=== PATIENT | female | born 1975 | race Caucasian/White ===

== ENCOUNTER 2024-11-12 09:19 | Outpatient (CLI) | payer MEDICAID | END 2024-11-12 09:20 | disposition home or self-care (01) | LOC: CSHLAB 09:19 | PROVIDERS: ATTEND Obstetrics & Gynecology | DX: Z01.818 Encounter for other preprocedural examination (principal); D25.1 Intramural leiomyoma of uterus | CPT/HCPCS: 80048; 84703; 85027; 86850; 86900; 86901; 93005; 93010 ==

== ENCOUNTER 2024-11-16 07:34 | Day surgery (SDC) | payer MEDICAID ==
[2024-11-12 10:19] VITALS: BMI 34.0
[2024-11-12 10:28] LABS: Hematocrit 40.3 % (34.9-44.5); Hemoglobin 12.8 g/dL (12.0-15.5); Mean Corpuscular Hemoglobin 27.6 pg (27.0-33.0); Mean Corpuscular Volume 87.0 fL (81.6-98.3); Platelet Count 617 10x3/uL (150-450); Red Blood Cell (RBC) Count 4.63 10x6/uL (3.90-5.03); White Blood Cell (WBC) Count 10.63 10x3/uL (3.5-10.5)
[2024-11-12 10:40] LABS: BHCG - Serum Negative (NEGATIVE); Pregs Control Background? CLEAR/WHITE (CLR/WHITE); Pregs Control Bar Appear? YES (CONTROL BAR)
[2024-11-12 10:43] LABS: Anion Gap 14 mmol/L (10-20); BUN (Urea Nitrogen) 15 mg/dL (7.0-18.7); Calc. Creatinine Clearance 0 mL/min (70-130); Calcium 9.6 mg/dL (7.8-10.44); Carbon Dioxide 21 mmol/L (22-29); Chloride 103 mmol/L (98-107); Glucose 324 mg/dL (70-105); Potassium 5.0 mmol/L (3.5-5.1); Sodium 133 mmol/L (136-145)
[2024-11-16] MEDS ORDERED: Famotidine/PF 20 mg/2ml Vial ONE (08:50)
[2024-11-16] MEDS ORDERED: Gabapentin 300 MG CAP ONE (08:50)
[2024-11-16] MEDS ORDERED: metroNIDAZOLE 500 MG (100 mL) BAG ONE (08:50)
[2024-11-16] MEDS ORDERED: PROPOFOL 20 ML ONE (09:52)
[2024-11-16] MEDS ORDERED: Rocuronium Bromide 10 MG/ML (10ML VIAL) ONE (09:53)
[2024-11-16] MEDS ORDERED: Lidocaine 1% PF 5 ML VIAL ONE (09:53)
[2024-11-16] MEDS ORDERED: Bupivacaine HCl 0.5%/Epinephrine 1:200,000/PF 30 ml Vial ONE (09:56)
[2024-11-16] MEDS ORDERED: CEFAZOLIN 2 GM VIAL ONE (10:02)
[2024-11-16] MEDS ORDERED: Albuterol HFA (OR) 200 PUFF INH ONE (10:23)
[2024-11-16] MEDS ORDERED: SUGAMMADEX SODIUM 200 MG/2 ML VIAL ONE (12:12)
[2024-11-16] MEDS ORDERED: Ondansetron PF 4 MG/2 ML Vial ONE (12:12)
[2024-11-16] MEDS ORDERED: HYDROmorphone 0.5 MG/0.5 ML SYRINGE ONE (13:23)
[2024-11-16] MEDS ORDERED: HYDROcodone/Acetaminophen 5/325 mg Tablet ONE (14:32)
== END 2024-11-16 15:17 | disposition home or self-care (01) ==
LOC: CSHSDC 07:34
PROVIDERS: ATTEND Obstetrics & Gynecology
PROC: 0UT94ZZ Resection of Uterus, Percutaneous Endoscopic Approach (ICD-10-PCS; principal; 2024-11-16)
DX: D25.1 Intramural leiomyoma of uterus (principal); N72 Inflammatory disease of cervix uteri; E78.5 Hyperlipidemia, unspecified; I10 Essential (primary) hypertension; Z79.899 Other long term (current) drug therapy
CPT/HCPCS: 80048; 84703; 85027; 86850; 86900; 86901; 88307; C9250-JZ; J1171; J2250; J2704; S2900